=== PATIENT | female | born 1945 | race Caucasian/White ===

== ENCOUNTER 2017-11-10 07:40 | Day surgery (SDC) | payer OTHER ==
[~2017-11-10] VITALS: Ht 149.9 cm; Wt 58.0 kg
[~2017-11-10 07:40] MED LIST: ALDACTONE25 MG PO; ASPIRIN81 M2 PO; COZAAR50 MG PO
[2017-11-10 08:11] VITALS: BP 121/76
[2017-11-10 12:25] VITALS: BP 140/67
[2017-11-10 13:25] VITALS: BP 141/67
== END 2017-11-10 13:29 | disposition home or self-care (01) ==
LOC: SDC 07:40
PROC: 0UDB8ZX Extraction of Endometrium, Via Natural or Artificial Opening Endoscopic, Diagnostic (ICD-10-PCS; principal; 2017-11-10)
DX: C54.1 Malignant neoplasm of endometrium (principal); N84.0 Polyp of corpus uteri; N83.9 Noninflammatory disorder of ovary, fallopian tube and broad ligament, unspecified; D64.9 Anemia, unspecified; I10 Essential (primary) hypertension; E78.5 Hyperlipidemia, unspecified; Z86.73 Personal history of transient ischemic attack (TIA), and cerebral infarction without residual deficits; Z82.3 Family history of stroke; Z82.49 Family history of ischemic heart disease and other diseases of the circulatory system; Z80.8 Family history of malignant neoplasm of other organs or systems; Z82.5 Family history of asthma and other chronic lower respiratory diseases; Z87.891 Personal history of nicotine dependence; Z79.82 Long term (current) use of aspirin
CPT/HCPCS: 88305; J1885; J2405; J3010

== ENCOUNTER 2017-12-27 22:06 | Inpatient (IN) | payer OTHER ==
[~2017-12-27] VITALS: Ht 149.9 cm; Wt 57.6 kg
[2017-12-28 12:24] VITALS: BP 196/89
[2017-12-28 18:26] VITALS: BP 186/86
[2017-12-28 19:41] VITALS: BP 160/85
[2017-12-28 20:28] LABS: HEMATOCRIT 38.4 % (36.0-46.0); HEMOGLOBIN 13.3 G/DL (11.9-15.5); MCH 35.7 PG (29.0-34.0); MCHC 34.6 G/DL (30.0-36.0); MCV 102.9 FL (83-99); PLATELET COUNT 149 K/uL (156-360); RBC DIS.WIDTH-CV 16.3 % (11.8-14.6); RED BLOOD COUNT 3.73 M/uL (3.80-5.20); WHITE BLOOD COUNT 12.5 K/uL (4.1-10.2)
[2017-12-28 20:53] LABS: CHLORIDE 103 MEQ/L (99-109); CREATININE 0.7 MG/DL (0.6-1.3); GFR ESTIMATE (CALCULATED) > 59 mL/min/; GLUCOSE 178 mg/dL (70-99); POTASSIUM 3.5 MEQ/L (3.7-5.4); SODIUM 135 MEQ/L (136-147); UREA NITROGEN (BUN) 11 mg/dL (9-23)
[2017-12-29 00:09] VITALS: BP 160/81
[2017-12-29 03:36] VITALS: BP 150/80
[2017-12-29 06:24] LABS: HEMATOCRIT 34.8 % (36.0-46.0); HEMOGLOBIN 11.9 G/DL (11.9-15.5); MCH 34.8 PG (29.0-34.0); MCHC 34.2 G/DL (30.0-36.0); MCV 101.8 FL (83-99); PLATELET COUNT 155 K/uL (156-360); RBC DIS.WIDTH-CV 15.6 % (11.8-14.6); RBC DIS.WIDTH-SD 58.4 % (39-53); RED BLOOD COUNT 3.42 M/uL (3.80-5.20); WHITE BLOOD COUNT 10.6 K/uL (4.1-10.2)
[2017-12-29 06:54] LABS: CHLORIDE 99 MEQ/L (99-109); CREATININE 0.6 MG/DL (0.6-1.3); GFR ESTIMATE (CALCULATED) > 59 mL/min/; GLUCOSE 149 mg/dL (70-99); POTASSIUM 3.6 MEQ/L (3.7-5.4); SODIUM 132 MEQ/L (136-147); UREA NITROGEN (BUN) 9 mg/dL (9-23)
[2017-12-29 07:02] VITALS: BP 168/95
[2017-12-29 11:44] VITALS: BP 172/82
[2017-12-29 15:05] VITALS: BP 176/88
[2017-12-29 20:30] VITALS: BP 170/70
[2017-12-30] VITALS: BP 140/60
[2017-12-30 04:17] VITALS: BP 130/82
[2017-12-30 07:48] LABS: HEMOGLOBIN 12.3 G/DL (11.9-15.5); MCH 35.1 PG (29.0-34.0); MCHC 35.1 G/DL (30.0-36.0); PLATELET COUNT 157 K/uL (156-360); RBC DIS.WIDTH-CV 15.2 % (11.8-14.6); RBC DIS.WIDTH-SD 55.8 % (39-53); WHITE BLOOD COUNT 10.7 K/uL (4.1-10.2)
[2017-12-30 08:14] LABS: CHLORIDE 94 MEQ/L (99-109); CREATININE 0.6 MG/DL (0.6-1.3); GFR ESTIMATE (CALCULATED) > 59 mL/min/; GLUCOSE 130 mg/dL (70-99); POTASSIUM 3.3 MEQ/L (3.7-5.4); SODIUM 129 MEQ/L (136-147); UREA NITROGEN (BUN) 7 mg/dL (9-23)
[2017-12-30 08:35] VITALS: BP 134/84
== END 2017-12-30 11:52 | disposition home or self-care (01) | DRG 741 ==
LOC: 2SOUTH → ENRESERV 22:06 → 2SOUTH 12-28 11:27 → 2EASTP 12-28 11:27 → 2SOUTH 12-28 12:37 → ENRESERV 12-28 16:40 → 2SOUTH 12-28 18:25 → 2EASTP 12-28 18:39
PROVIDERS: Obstetrics & Gynecology Gynecologic Oncology
DX: C54.1 Malignant neoplasm of endometrium (principal); D25.9 Leiomyoma of uterus, unspecified; E78.5 Hyperlipidemia, unspecified; I10 Essential (primary) hypertension; I44.7 Left bundle-branch block, unspecified; I36.1 Nonrheumatic tricuspid (valve) insufficiency; R63.0 Anorexia; Z86.73 Personal history of transient ischemic attack (TIA), and cerebral infarction without residual deficits; Z79.82 Long term (current) use of aspirin; Z80.1 Family history of malignant neoplasm of trachea, bronchus and lung; Z80.8 Family history of malignant neoplasm of other organs or systems; Z82.49 Family history of ischemic heart disease and other diseases of the circulatory system
CPT/HCPCS: 36415; 80048; 82948; 85027; 86850; 86900; 86901; 86920; 94799; J0131; J0690; J1100; J1170; J1650; J1885; J2250; J2405; J2550; J2710; J2765; J3010; Q0175